=== PATIENT | male | born 1960 | race Caucasian/White ===

== ENCOUNTER 2020-12-10 21:30 | Emergency (ER) | payer OTHER, SELFPAY ==
--- NOTE | 2020-12-10 22:09 | XRR_ITS ---
PROCEDURE INFORMATION: Exam: XR Chest Exam date and time: 12/10/2020 10:09 PM Age: 60 years old Clinical indication: Dyspnea; Additional info: Covid, SOB TECHNIQUE: Imaging protocol: XR of the chest. Views: 1 view. COMPARISON: No relevant prior studies available. FINDINGS: Lungs: There are bilateral hazy pulmonary opacities which may be secondary to pneumonia or COVID-19. Pleural spaces: Unremarkable. No pleural effusion. No pneumothorax. Heart/Mediastinum: Unremarkable. No cardiomegaly. Bones/joints: Unremarkable. XR/XR chest 1V portable [id number] IMPRESSION: There are bilateral hazy pulmonary opacities which may be secondary to pneumonia or COVID-19.
[2020-12-10 22:15] VITALS: BP 109/72; PULSE 77; RESP 16; TEMP 36.9; O2SAT 92; BMI 25.0
--- NOTE | 2020-12-11 01:36 | ED_ITS ---
HPI - COVID General: Chief Complaint: COVID symptoms Stated Complaint: covid + 12/05/2020 Time Seen by Provider: 12/11/20 01:26 Triage information: Has fever, cough or shortness of breath . Exposure to COVID + person last 14 days History of Present Illness: HPI Narrative: Patient has been ill for almost 2 weeks with COVID-19. Patient reports that starting today he noticed some discomfort in the right lower quadrant of his chest wall. Patient reports some mild shortness of breath today. Patient otherwise is healthy and has no chronic medical problems. MD complaint: known COVID positive COVID Results: No Data to Display Review of Systems General: Reports: 10 or more systems reviewed and unremarkable except in HPI and below Resp: Reports: other (Right chest wall pain) Physical Exam Const: COMMON NORMALS: no acute distress and patient oriented x3 GENERAL APPEARANCE: cooperative HENMT: COMMON NORMALS: normocephalic and Normal external nose present HEAD & SCALP: normal to inspection and normocephalic NOSE: Normal external nose present MOUTH: Normal oral and palatal mucosa present THROAT: posterior oropharynx normal Eye: GENERAL EYE: appearance normal, both eyes and all related structures Neck/C-Spine: COMMON NORMALS: full ROM Lymph: LYMPHATIC: no lymphadenopathy noted Chest: COMMONS NORMALS: normal inspection of the chest Resp: COMMON NORMALS: normal respiratory effort EFFORT & INSPECTION: Yes able to speak in complete sentences AUSCULTATION: crackles Laterality: left and posterior (Lower field) Cardio: COMMON NORMALS: regular rate and regular rhythm RATE: regular rate RHYTHM: regular rhythm GI: COMMON NORMALS: non-tender Back/Pelvis: COMMON NORMALS: thoracic and lumbar spine normal to inspection Extremity: COMMON NORMALS: normal to inspection Neuro: COMMON NORMALS: patient oriented x3 and moves all extremities Psych: COMMON NORMALS: mental status grossly normal and cooperative Skin: COMMON NORMALS: no rashes or lesions noted GENERAL SKIN EXAM: no rashes or lesions noted Course Vital Signs: Vital signs: Vital Signs Temperature 98.5 F 12/10/20 22:15 Pulse Rate 77 12/10/20 22:15 Respiratory Rate 16 12/10/20 22:15 Blood Pressure 109/72 12/10/20 22:15 Pulse Oximetry 92 12/10/20 22:15 MDM - COVID MDM Narrative: Medical decision making narrative: Patient comes in today for complaints of increasing shortness of breath and some left lower chest wall pain. Patient has COVID-19 for the last 14 days. On exam we note some crackles in the right posterior lung field. Differential diagnosis includes pneumonia, respiratory failure, COVID-19. Chest x-ray noted bilateral lower lung field infiltrates. Pulse oxygen range between 92 and 94% on room air. I reviewed this with patient recommended patient be on Decadron 6 mg daily and start him on albuterol sulfate inhaler. Recommended patient monitor oxygen with pulse oximetry monitoring to make sure her oxygen level stays above 90%. Patient should continue to monitoring and follow-up with primary care or return to the ER for worsening symptoms or low oxygen levels less than 90%. COVID Results: No Data to Display Discharge Plan Discharge Patient Disposition: Home Clinical Impression: Pneumonia due to 2019 novel coronavirus Condition: Stable Prescriptions: New dexamethasone 6 mg tablet 6 mg PO DAILY Qty: 7 RF: 0 albuterol sulfate 90 mcg/actuation HFA aerosol inhaler 2 inh inhalation Q4H PRN (Reason: shortness of breath or wheezing) Qty: 8.5 RF: 0 Discharge Orders: Discharge ED (Routine); Ordered 12/11/20 Ordered By: Wayne Castillo Referrals: Karen Leonard MD [Primary Care Provider] - Discharge Diet: Usual diet Discharge Activity: Increase activity as tolerated Patient Instructions: Viral Pneumonia (ED), Opioid Safety Activity Restrictions/Additional Instructions: Encourage plenty of fluids. Use of dexamethasone daily for the next 7 days. Use albuterol inhaler 2 puffs every 4 hours as needed for shortness of breath or coughing, but use it at least 4 times a day. Monitor pulse oxygen and make sure your oxygen saturation stays above 90%. If you get an medical below 90% and after coughing or moving around taking a couple deep breaths it continues to maintain below 90% I recommend you be further evaluated with your primary care or closest ER. Return to the emergency department for new concerns. Coding Level of Care Code ED Recruiting Assistant for Trudi Humphries
[2020-12-11] MEDS: dexamethasone 10 mg/mL INJ IM (02:02)
[2020-12-11 02:22] VITALS: PULSE 69; RESP 18; O2SAT 95
[2020-12-11 02:25] VITALS: PULSE 68; O2SAT 97
[2020-12-11] MEDS: albuterol 8 gm MDI 2 PUFF INHALATION (02:30)
[2020-12-11 02:37] VITALS: PULSE 73; RESP 21; O2SAT 94
== END 2020-12-11 02:42 | disposition home or self-care (01) ==
PROVIDERS: Emergency Provider Nurse Practitioner Family; PCP Family Medicine
DX: U07.1 COVID-19 (principal); J12.82 Pneumonia due to coronavirus disease 2019
CPT/HCPCS: 71045; 94640; 96372; 99283; J1100; J3535